=== PATIENT | male | born 1940 | race Caucasian/White ===

== ENCOUNTER 2018-08-25 09:06 | Day surgery (SDC) | payer MEDICARE, BC ==
--- NOTE | 2018-08-12 23:26 | HP ---
CC: GOLDY Guillen.* HISTORY AND PHYSICAL: DATE OF PLANNED ADMISSION AND SURGERY: 08/25/18. HISTORY OF PRESENT ILLNESS: Mr. Adorno is a 77-year-old white male who is admitted with past history of bladder tumor, suspected tumor of the right ureteral orifice and distal Rt ureter, for cystoscopy, right retrograde pyelography, right ureteroscopy, biopsy and right ureteral stent insertion. Regarding the patient's cardiac and medical histories, please refer to the detailed history and physical enclosed with pt's records, dated 08/11/18, by Dr. Jed Aguirre, his hot box checker. Mr. Adorno's history goes back to 4 years ago when he presented with hematuria, urinary incontinence and was diagnosed as having multiple bladder tumors. At that time, he underwent transurethral resection of the tumors. 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 Retrograde pyelographies showed no upper tract disease. The patient was treated with a 6 weeks' course of BCG, however, he had recurrent lesions that were again high grade, non- invasive and he was treated with another course of BCG. He did well and he had small recurrences that were fulgurated in the office. He has done well for the last 2 years without recurrences. He had a recent office cystoscopy which showed a papillary lesion arising from the right ureteral orifice suspicious for transitional cell carcinoma. Because of that finding, the patient is admitted for above procedure. Past history is relevant for chronic urinary incontinence. The cause of the incontinence has not been clearly found as the patient has not had any pelvic surgeries and does not have any neurologic diseases to explain it. The incontinence seems to be a combination of urge and stress incontinence. He has not had any recurrent episodes of gross hematuria or flank pain or urinary tract infections. He has been on Tamsulosin and finasteride for prostate enlargement and bladder outlet obstruction. PAST MEDICAL HISTORY: Relevant for coronary artery disease, for which he underwent coronary bypass surgery in [place] in August 2015. He is hypertensive and diabetic and hyperlipidemic. He has a chronic atrial fibrillation and coronary arteriosclerosis. MEDICATIONS: He is on the following medications: 1. Lisinopril 20 mg daily. 2. Ibuprofen 200 mg as needed. 3. Atorvastatin 20 mg daily. 4. Invokana 300 mg daily. 5. Levemir 100 units per cc injecting 15 units twice a day. 6. Trulicity IM injection weekly. 7. He is on Eliquis 5 mg twice a day. 8. Finasteride 5 mg daily. 9. Tamsulosin 0.4 mg daily. ALLERGIES: The patient reports being allergic to IV CONTRAST and to PRADAXA. SOCIAL HISTORY: The patient has never been a smoker and has not used any alcohol or illicit drugs. He lives alone. He is a . PHYSICAL EXAMINATION GENERAL: He is a pleasant moderately overweight white male who looks his age. VITAL SIGNS: Blood pressure 130/80, pulse 100. Weight 265 pounds. LUNGS: Clear. HEART: Irregular, no murmurs. ABDOMEN: Soft, no masses, no tenderness and no CVA tenderness. EXTERNAL GENITALIA: Normal. RECTAL EXAM: Moderately enlarged but nonsuspicious prostate. IMPRESSION: 1. History of transitional cell carcinoma of the urinary bladder, with papillary lesion arising from the right ureteral orifice noted on recent office cystoscopy. 2. Coronary artery disease. 3. Atrial fibrillation. 4. Hypertension. 5. Diabetes mellitus. PLAN: Cystoscopy, right retrograde pyelography, right ureteroscopy, biopsy of right ureteral lesion and insertion of right ureteral stent. The procedure will be done without having to stop his Eliquis. I discussed the operation in detail with the patient and all his questions were answered. [id number]/[facility] #: [id number] SARABJIT
[~2018-08-25 09:06] MED LIST: Buffered Lidocaine 1% SYRIN* 1 ML/SYRINGE INTRADERM ONE; Famotidine IV* 10 MG/ML 2 ML (20 mg) IV ONE; Lactated Ringers 1000 ML Bag* 1,000 ML IV SCH
[2018-08-25] MEDS ORDERED: cefTRIAXone(*) 2 GM ADDV.VIAL IVPB ONE (10:03)
[2018-08-25] MEDS ORDERED: Famotidine IV* 10 MG/ML 2 ML (20 mg) ONE (10:03)
[2018-08-25] MEDS ORDERED: Buffered Lidocaine 1% SYRIN* 1 ML/SYRINGE INTRADERM ONE (10:03)
[2018-08-25] MEDS ORDERED: Iohexol 180 (CONTRAST) 10 ML SDV IV ONE (11:35)
[2018-08-25] MEDS ORDERED: Propofol* 10 MG/ML 20 ML BTL ONE (12:02)
[2018-08-25] MEDS ORDERED: fentaNYL* 50 MCG/ML 2 ML VIAL (100 MCG VIAL) ONE (12:02)
[2018-08-25] MEDS ORDERED: Lidocaine 2% PF * 5 ML VIAL ONE (12:03)
[2018-08-25] MEDS ORDERED: Phenylephrine 40 MCG/ML SYRINGE ONE (12:12)
[2018-08-25] MEDS ORDERED: EPHEDrine (Pressors)* 50 MG/ML VIAL ONE (12:51)
[2018-08-25] MEDS ORDERED: Furosemide IV* 10 MG/ML 2 ML VIAL (20 MG) ONE (13:25)
[2018-08-25 15:52] VITALS: BP 153/99
--- NOTE | 2018-08-25 16:13 | OP ---
DATE OF OPERATION: 08/25/18 - [facility] DATE OF : 44 SURGEON: Richard Jacob MD ANESTHESIOLOGIST: Dr. Doc Nair. ANESTHESIA: General. PRE-OP DIAGNOSIS: Tumor distal right ureter. POST-OP DIAGNOSIS: Tumor distal right ureter, pending pathology. OPERATIVE PROCEDURE: 1. Cystoscopy. 2. Bilateral retrograde pyelographies. 3. Right ureteroscopy, washings, and biopsies of lesions distal right ureter. 4. Right ureteral stent insertion (6-[place]). 5. Bladder biopsy and fulguration (left trigone). INDICATION FOR PROCEDURE: Mr. Adorno is a 77-year-old white male who has past history of bladder tumors and who on his recent surveillance cystoscopy was noted to have a small papillary lesion arising from the right ureteral orifice. The patient could not have a CT urogram because of allergy to IV CONTRAST. He is brought in for the above procedures. PATHOLOGY: At cystoscopy, the penile and bulbar urethrae looked normal. The prostatic urethra measured about 2.5 cm in length and there was moderate obstruction by bilobar hyperplasia of the prostate. Examination of the bladder showed moderate degree of trabeculations. There was an elevated hyperemic lesion just lateral to the left ureteral orifice measuring about 5 mm in size. No other suspicious bladder lesions were seen. There was a small papillary lesion arising from the right ureteral orifice measuring 2 to 3 mm in size. Upon right retrograde pyelography, there was no evidence of any abnormal filling defects in the ureter or in the collecting system. There was a fusiform narrowing of the distal Rt ureteral lumen. Upon right ureteroscopy, there were several papillary lesions and hyperemia of the mucosa of the distal 3 cm of the ureter. The lesions had the appearance of a flat superficial well-differentiated transitional cell carcinoma. Ureteroscopy into the proximal ureter showed no lesions. Left retrograde pyelography showed no abnormal filling defects or dilatation of the left ureter or the collecting system. DESCRIPTION OF PROCEDURE: After successful general anesthesia, the patient was placed in the lithotomy position and was prepped and draped for a cystoscopy. Cystoscopy was performed. The bladder was inspected and the above findings were noted. A flexible tip guidewire was then introduced into the right orifice. A size 5- [place] open-ended catheter was fed on top of the guidewire and retrograde pyelography was performed, and the above findings noted. The guidewire was reinserted inside the right orifice. Biopsies were obtained from the right orifice including the small papillary lesion seen. A size 6.5 semi-rigid tapered ureteroscope was then introduced into the right orifice. The pathology in the distal ureter was noted. Using the biopsy forceps through the ureteroscope, several biopsies were obtained from the above lesions and were put in saline and sent for pathology. Washings were then obtained from the distal ureter and sent for cytology. Ureteroscopy was then continued into the proximal ureter and no other lesions seen. A size 6-[place] stent was then placed with the proximal end coiling in the renal pelvis and the distal end coiling inside the bladder. Attention was then directed to the left ureteral orifice with the plan to perform a diagnostic left retrograde pyelography to rule out any lesions in the left collecting system and ureter. It was a bit difficult to pass the guidewire into the left ureter due to the angle of the ureter and after several attempts, it was successful. Retrograde pyelography was performed and the above findings were noted. There was prompt drainage of contrast from the ureter following the open-ended catheter removal. The lesion in the left trigone lateral to the left orifice was then excised using the biopsy forceps. The lesion was fulgurated with the Bugbee electrode. A size 16-[place] Jasso catheter was placed. The patient tolerated the procedure well and left the operating room in good condition. The specimens were right ureteral biopsies and washings and biopsy of left trigone. [id number]/[facility] #: [id number] SARABJIT
== END 2018-08-25 15:50 | disposition home or self-care (01) ==
LOC: OR 09:06
PROVIDERS: ATTEND Urology
DX: N28.89 Other specified disorders of kidney and ureter (principal); Z85.51 Personal history of malignant neoplasm of bladder; I25.10 Atherosclerotic heart disease of native coronary artery without angina pectoris; I25.2 Old myocardial infarction; I10 Essential (primary) hypertension; I48.91 Unspecified atrial fibrillation; Z79.01 Long term (current) use of anticoagulants; E11.9 Type 2 diabetes mellitus without complications; Z95.1 Presence of aortocoronary bypass graft; E78.5 Hyperlipidemia, unspecified
CPT/HCPCS: 74420; 88112; 88305; 88342; C1876; J0696; J1940; J2704; J3010

== ENCOUNTER → 2018-09-15 05:44 | Day surgery (SDC) | payer MEDICARE, BC ==
--- NOTE | 2018-09-01 08:30 | HP ---
INTERVAL HISTORY AND PHYSICAL: DATE OF PLANNED ADMISSION AND SURGERY: 09/15/18 Please refer to my detailed history and physical for his recent admission dated 08/25/18. HISTORY OF PRESENT ILLNESS: Mr. Adorno is a 77-year-old white male who has suspected tumor of the distal right ureter who is admitted for right ureteroscopy, biopsy, and right ureteral stent exchange. Mr. Adorno was diagnosed about 4 years ago with high-grade noninvasive transitional cell carcinoma of the urinary bladder . He was treated with resection followed by intravesical BCG. He did well and had no evidence of recurrent disease. He was admitted on 08/25/18 because of a papillary lesion arising from the right ureteral orifice noted on surveillance office cystoscopy. A CT urogram could not be obtained because of allergy to IV contrast. He underwent a cystoscopy, left retrograde pyelography, which showed normal left ureter and collecting system. He had a biopsy of a lesion of the left trigone, which the pathology showed it to be benign. He had a right ureteroscopy, which showed suspicious lesions involving the distal 3 cm of the right ureter. There were small papillary lesions arising from the ureteral mucosa. The washings from the distal right ureter were suspicious for transitional cell carcinoma. Superficial biopsies from the ureteral wall, showed denuded urothelium and inflammatory changes and did not show malignancy. The patient had a right ureteral stent insertion. He did well postoperatively. Because there is still suspicion that the lesions seen in the distal right ureter do represent transitional cell carcinoma, the patient is brought back in for a repeat right ureteroscopy, biopsies, and right ureteral stent exchange. There have not been any changes in his medical condition or in his medications or in his physical exam. I discussed the above plans in detail with the patient and all his questions were answered. [id number]/[facility] #: [id number] SARABJIT
[~2018-09-15 05:44] MED LIST changes: -Famotidine IV* 10 MG/ML 2 ML (20 mg) IV ONE; +Iohexol 180 (CONTRAST) 10 ML SDV IV ONE; +Midazolam* 1 MG/ML 2 ML VIAL (2 MG) ONE; +Naloxone* 0.4 MG/ML 1 ML VIAL IV PRN; +Ondansetron INJ* 2 MG/ML VIAL IV PRN; +Propofol* 10 MG/ML 20 ML BTL ONE; +cefTRIAXone(*) 2 GM ADDV.VIAL IVPB ONE; +fentaNYL* 50 MCG/ML 2 ML VIAL (100 MCG VIAL) IV PRN; +fentaNYL* 50 MCG/ML 2 ML VIAL (100 MCG VIAL) ONE; +oxyCODONE/Acetamin 5/325 MG* TAB PO PRN
--- NOTE | 2018-09-15 09:50 | OP ---
DATE OF OPERATION: 09/15/18 - [facility] DATE OF : 44 SURGEON: Richard Jacob MD. ANESTHESIOLOGIST: Kade Rodriguez MD. ANESTHESIA: General. PRE-OP DIAGNOSIS: Right ureteral lesions. POST-OP DIAGNOSIS: Pending pathology. OPERATIVE PROCEDURE: 1. Cystoscopy. 2. Right retrograde pyelography. 3. Washings of proximal and distal right ureter. 4. Biopsies distal right ureter. 5. Right ureteral stent exchange (7-Australian). INDICATION FOR PROCEDURE: Mr. Adorno is a 77-year-old white male who was diagnosed 4 years ago with multiple lesions of high-grade non-invasive transitional cell carcinoma of the urinary bladder. He was treated by resections and followed with intravesical BCG and ultimately did very well without any recurrent disease. His upper tracts were normal. On a recent cystoscopy, he was noted to have a small papillary lesion arising from the right ureteral orifice. Three weeks ago, he underwent a cystoscopy, right ureteroscopy, biopsies and washings from the right ureter with insertion of ureteral stent. The cytologies were suspicious for transitional cell carcinoma; however, the biopsies showed inflammatory changes. The patient now is being brought in for repeat ureteroscopy and evaluation of the right ureter. PATHOLOGY: At cystoscopy, the penile and bulbar urethrae looked normal. The prostate was minimally obstructing. Examination of the bladder showed the distal limb of the stent coming from the right orifice. There was the expected edema at the right trigone from the stent. There was some hyperemia in the bladder wall but not suspicious for malignancy. Granulation tissue was noted in the left trigone at the site of the biopsy 3 weeks ago. Upon right ureteroscopy, there was the expected edema from the ureteral stent. There were no lesions seen in the ureter that had the typical appearance of transitional cell carcinoma. Retrograde pyelography showed no abnormal filling defects in the ureter or in the collecting system. The area of partial narrowing in the distal right ureter noted at the original right retrograde did not show any specific lesions either. Washings were obtained from the proximal and from the distal ureter. Small biopsies were obtained from the distal ureter. DESCRIPTION OF PROCEDURE: After successful general anesthesia, the patient was placed in the lithotomy position and was prepped and draped for a cystoscopy. Cystoscopy was performed. The bladder was inspected and the above findings were noted. The right ureteral stent was removed over a guidewire. Right ureteroscopy was then performed and the findings in the ureteral wall were noted. The ureteroscope was introduced all the way into the proximal ureter. Washings were obtained from the proximal and mid ureter and sent for cytology. The ureteroscope was then positioned in the distal ureter. Additional washings were obtained and sent for cytology. Using the biopsy forceps, 2 small biopsies were obtained from some of the edematous mucosal tissue. Again, it did not have the appearance of papillary transitional cell carcinoma. A 7-[place] stent was then placed with the proximal end coiling in the renal pelvis and the distal end coiling inside the ureter. A 16-[place] Jasso catheter was placed. The patient tolerated the procedure well and left the operating room in good condition. The plan is to keep the stent in place for 7 to 10 days. It will be removed in the office as an outpatient. Depending upon the result of the cytologies and biopsy, we will decide on the additional management and treatment. [id number]/[facility] #: [id number] MTDD
[2018-09-15 11:18] VITALS: BP 147/75
== END | disposition home or self-care (01) ==
LOC: OR 05:44
PROVIDERS: ATTEND Urology
DX: N28.89 Other specified disorders of kidney and ureter (principal); Z85.51 Personal history of malignant neoplasm of bladder; I25.2 Old myocardial infarction; I25.10 Atherosclerotic heart disease of native coronary artery without angina pectoris; I48.91 Unspecified atrial fibrillation; Z79.01 Long term (current) use of anticoagulants; E11.9 Type 2 diabetes mellitus without complications
CPT/HCPCS: 51600; 74420; 74430; 88112; 88305; 88342; C1876; J0696; J2250; J2704; J3010

== ENCOUNTER 2020-08-22 22:54 | Inpatient (IN) ==
[2020-08-22] MEDS ORDERED: NS 0.9% 1000 ml BAG 1,000 ML IV ONE (22:58)
[2020-08-22 23:35] LABS: ABS Basophils 0.1 10^3/ul (0-0.2); ABS Eosinophils 0.1 10^3/ul (0-0.6); ABS Lymphocytes 0.8 10^3/ul (1.0-4.8); ABS Monocytes 0.8 10^3/ul (0-0.8); ABS Neutrophils 6.9 10^3/ul (1.5-7.7); Eosinophil % 0.9 %; Hematocrit 42 % (42-52); Lymphocyte % 8.8 %; Mean Corpuscular HGB Conc 33 g/dL (31-36); Mean Corpuscular Hemoglobin 29 pg (27-31); Mean Corpuscular Volume 87 fL (80-94); Mean Platelet Volume 7.4 fL (7.4-10.4); Nucleated Red Blood Cells % 0.1; Platelet Count 402 10^3/uL (150-450); Red Blood Count 4.86 10^6 /uL (4.18-5.48); Red Cell Distribution Width 15 % (10-15); White Blood Count 8.6 10^3/uL (3.5-10.8)
[2020-08-22 23:50] LABS: Activated Partial Thrombo Time 35.2 seconds (26.0-38.0); INR 1.03 (0.82-1.09)
[2020-08-22 23:53] LABS: Albumin 3.7 g/dL (3.2-5.2); Albumin/Globulin Ratio 1.4 (1-3); Calcium 10.2 mg/dL (8.6-10.3); EGFR Non-African American 81.8 (>60); Globulin 2.6 g/dL (2-4); HDL Cholesterol 42.1 mg/dL; Total Bilirubin 0.6 mg/dL (0.2-1.0); Total Protein 6.3 g/dL (6.4-8.9)
[2020-08-22 23:55] LABS: Troponin I 0.01 ng/mL (<0.03)
[2020-08-23 00:26] LABS: Potassium 4.5 mmol/L (3.5-5.0)
[2020-08-23 00:43] LABS: Urine Appearance Clear; Urine Bacteria Absent (Absent); Urine Bilirubin Negative (Negative); Urine Blood Negative (Negative); Urine Color Yellow; Urine Glucose 3+(>=500 mg/dL) (Negative); Urine Ketones Negative (Negative); Urine Nitrite Negative (Negative); Urine Protein 1+(30 mg/dL) (Negative); Urine Red Blood Cell Trace(0-2/hpf) (Absent); Urine Specific Gravity 1.024 (1.002-1.030); Urine Urobilinogen Negative (Negative); Urine White Blood Cell Trace(0-5/hpf) (Absent)
[2020-08-23] MEDS ORDERED: Dextrose 50% Syringe 50 ml 25 GM/50 ML SYRINGE IV PUSH PRN (01:18)
[2020-08-23] MEDS ORDERED: cefTRIAXone 1 gm/50 mL NS BAG 1 GM/50 ML BAG IV ONE (01:28)
[2020-08-23] MEDS ORDERED: Azithromycin 500 mg/250 ml NS 500 MG/250 ML BAG IVPB ONE (01:28)
[2020-08-23] MEDS ORDERED: Furosemide 40 mg/4 ml IV VIAL IV SLOW PU ONE (01:56)
[2020-08-23 02:23] LABS: C Reactive Protein 3.4 mg/L (<8.01)
[2020-08-23 04:48] LABS: HDL Cholesterol 44.2 mg/dL
[2020-08-23] MEDS ORDERED: Gadobenate (CONTRAST) 529 MG/ML 10 ML SDV IV ONE (17:26)
[2020-08-24] MEDS ORDERED: Magnesium Sulfate IV 1GM/100ML 1 GM/100 ML BAG IV ONE (06:06)
[2020-08-24 06:31] LABS: ABS Basophils 0.1 10^3/ul (0-0.2); ABS Eosinophils 0.2 10^3/ul (0-0.6); ABS Lymphocytes 1.3 10^3/ul (1.0-4.8); ABS Monocytes 0.6 10^3/ul (0-0.8); ABS Neutrophils 4.4 10^3/ul (1.5-7.7); Eosinophil % 2.9 %; Hematocrit 43 % (42-52); Hemoglobin 14.7 g/dL (14.0-18.0); Lymphocyte % 20.1 %; Mean Corpuscular HGB Conc 34 g/dL (31-36); Mean Corpuscular Hemoglobin 29 pg (27-31); Mean Corpuscular Volume 87 fL (80-94); Mean Platelet Volume 7.9 fL (7.4-10.4); Nucleated Red Blood Cells % 0.1; Platelet Count 376 10^3/uL (150-450); Red Blood Count 4.99 10^6 /uL (4.18-5.48); Red Cell Distribution Width 15 % (10-15); White Blood Count 6.6 10^3/uL (3.5-10.8)
[2020-08-24 06:38] LABS: Blood Urea Nitrogen 21 mg/dL (6-24); CO2 Carbon Dioxide 27 mmol/L (22-32); Chloride 105 mmol/L (101-111); EGFR African American 104.3 (>60); EGFR Non-African American 86.2 (>60); Glucose 171 mg/dL (70-100); Sodium 138 mmol/L (135-145)
[2020-08-24 06:39] LABS: Anion Gap 6 mmol/L (2-11)
[2020-08-25 05:37] LABS: ABS Basophils 0.1 10^3/ul (0-0.2); ABS Eosinophils 0.2 10^3/ul (0-0.6); ABS Lymphocytes 1.3 10^3/ul (1.0-4.8); ABS Monocytes 0.8 10^3/ul (0-0.8); ABS Neutrophils 4.4 10^3/ul (1.5-7.7); Eosinophil % 2.9 %; Hematocrit 41 % (42-52); Hemoglobin 13.9 g/dL (14.0-18.0); Lymphocyte % 19.4 %; Mean Corpuscular HGB Conc 34 g/dL (31-36); Mean Corpuscular Hemoglobin 29 pg (27-31); Mean Corpuscular Volume 86 fL (80-94); Mean Platelet Volume 7.2 fL (7.4-10.4); Nucleated Red Blood Cells % 0.1; Platelet Count 345 10^3/uL (150-450); Red Blood Count 4.78 10^6 /uL (4.18-5.48); Red Cell Distribution Width 14 % (10-15); White Blood Count 6.8 10^3/uL (3.5-10.8)
[2020-08-25 07:01] LABS: Calcium 9.8 mg/dL (8.6-10.3)
[2020-08-25 07:07] LABS: EGFR African American 101.6 (>60)
[2020-08-26] MEDS ORDERED: hydrALAZINE 20 mg/ml 1 ML Vial IV IV SLOW PU ONE (03:34)
[2020-08-26 08:25] LABS: Calcium 9.8 mg/dL (8.6-10.3); EGFR African American 108.7 (>60); EGFR Non-African American 89.8 (>60); Potassium 4.1 mmol/L (3.5-5.0)
[2020-08-26] MEDS ORDERED: Canagliflozin 300 mg TAB (NF) PO SCH (09:00)
[2020-08-26 13:35] VITALS: BP 134/74
== END 2020-08-26 14:49 ==
LOC: ED 22:54 → MEDTELE 08-23 01:06
PROVIDERS: ADMIT Internal Medicine; ATTEND Hospitalist

== ENCOUNTER 2020-08-26 12:25 | Inpatient (IN) ==
[2020-08-26] MEDS ORDERED: Al Hydrox/Mg Hydrox/Simet LIQ 30 ML UDC PO PRN (12:56)
[2020-08-26] MEDS ORDERED: Dextrose 50% Syringe 50 ml 25 GM/50 ML SYRINGE IV PUSH PRN (13:12)
[2020-08-27 05:04] LABS: ABS Basophils 0.1 10^3/ul (0-0.2); ABS Eosinophils 0.1 10^3/ul (0-0.6); ABS Lymphocytes 1.5 10^3/ul (1.0-4.8); ABS Monocytes 0.6 10^3/ul (0-0.8); Eosinophil % 2.2 %; Hematocrit 41 % (42-52); Hemoglobin 13.5 g/dL (14.0-18.0); Lymphocyte % 23.7 %; Mean Corpuscular HGB Conc 33 g/dL (31-36); Mean Corpuscular Hemoglobin 29 pg (27-31); Mean Corpuscular Volume 87 fL (80-94); Mean Platelet Volume 7.7 fL (7.4-10.4); Platelet Count 309 10^3/uL (150-450); Red Blood Count 4.68 10^6 /uL (4.18-5.48); Red Cell Distribution Width 15 % (10-15); White Blood Count 6.4 10^3/uL (3.5-10.8)
[2020-08-27 05:20] LABS: Albumin 3.3 g/dL (3.2-5.2); Albumin/Globulin Ratio 1.4 (1-3); Calcium 9.5 mg/dL (8.6-10.3); EGFR Non-African American 81.8 (>60); Globulin 2.3 g/dL (2-4); Total Bilirubin 0.6 mg/dL (0.2-1.0); Total Protein 5.6 g/dL (6.4-8.9)
[2020-08-27] MEDS: Canagliflozin 300 mg TAB (NF) PO SCH (09:27)
[2020-08-27] MEDS: Senna TAB 8.6 mg TAB PO PRN (19:39)
[2020-08-28] MEDS: Canagliflozin 300 mg TAB (NF) PO SCH (08:20)
[2020-08-29] MEDS: Senna TAB 8.6 mg TAB PO PRN (20:31)
[2020-08-30] MEDS: Senna TAB 8.6 mg TAB PO PRN (20:12)
[2020-09-03 05:55] LABS: ABS Basophils 0.1 10^3/ul (0-0.2); ABS Eosinophils 0.1 10^3/ul (0-0.6); ABS Lymphocytes 1.1 10^3/ul (1.0-4.8); ABS Monocytes 0.6 10^3/ul (0-0.8); ABS Neutrophils 4.1 10^3/ul (1.5-7.7); Hematocrit 41 % (42-52); Hemoglobin 13.6 g/dL (14.0-18.0); Lymphocyte % 18.2 %; Mean Corpuscular HGB Conc 33 g/dL (31-36); Mean Corpuscular Hemoglobin 29 pg (27-31); Mean Corpuscular Volume 87 fL (80-94); Mean Platelet Volume 8.1 fL (7.4-10.4); Platelet Count 240 10^3/uL (150-450); Red Blood Count 4.71 10^6 /uL (4.18-5.48); Red Cell Distribution Width 15 % (10-15); White Blood Count 6.1 10^3/uL (3.5-10.8)
[2020-09-03 06:14] LABS: Albumin 3.5 g/dL (3.2-5.2); Albumin/Globulin Ratio 1.5 (1-3); Calcium 9.7 mg/dL (8.6-10.3); EGFR African American 95.3 (>60); EGFR Non-African American 78.8 (>60); Globulin 2.4 g/dL (2-4); Total Bilirubin 0.8 mg/dL (0.2-1.0); Total Protein 5.9 g/dL (6.4-8.9)
[2020-09-03] MEDS: Senna TAB 8.6 mg TAB PO PRN (20:35)
[2020-09-04] MEDS: Senna TAB 8.6 mg TAB PO PRN (21:22)
[2020-09-06] MEDS: Insulin GLARGINE 100 un/ml 10 ml VIAL SUBCUT SCH (09:26)
[2020-09-07] MEDS: Insulin GLARGINE 100 un/ml 10 ml VIAL SUBCUT SCH (08:41)
[2020-09-08] MEDS: Insulin GLARGINE 100 un/ml 10 ml VIAL SUBCUT SCH (08:51)
[2020-09-09] MEDS: Insulin GLARGINE 100 un/ml 10 ml VIAL SUBCUT SCH (08:10)
[2020-09-10 06:54] LABS: ABS Basophils 0.1 10^3/ul (0-0.2); ABS Eosinophils 0.1 10^3/ul (0-0.6); ABS Lymphocytes 1.1 10^3/ul (1.0-4.8); ABS Monocytes 0.5 10^3/ul (0-0.8); ABS Neutrophils 4.7 10^3/ul (1.5-7.7); Eosinophil % 1.5 %; Hematocrit 43 % (42-52); Hemoglobin 14.2 g/dL (14.0-18.0); Lymphocyte % 17.5 %; Mean Corpuscular HGB Conc 33 g/dL (31-36); Mean Corpuscular Hemoglobin 29 pg (27-31); Mean Corpuscular Volume 86 fL (80-94); Mean Platelet Volume 7.9 fL (7.4-10.4); Platelet Count 263 10^3/uL (150-450); Red Blood Count 4.92 10^6 /uL (4.18-5.48); Red Cell Distribution Width 15 % (10-15); White Blood Count 6.4 10^3/uL (3.5-10.8)
[2020-09-10 07:10] LABS: Albumin 3.8 g/dL (3.2-5.2); Albumin/Globulin Ratio 1.5 (1-3); Calcium 10.1 mg/dL (8.6-10.3); EGFR Non-African American 81.8 (>60); Globulin 2.6 g/dL (2-4); Potassium 4.3 mmol/L (3.5-5.0); Total Bilirubin 0.6 mg/dL (0.2-1.0); Total Protein 6.4 g/dL (6.4-8.9)
[2020-09-10] MEDS: Insulin GLARGINE 100 un/ml 10 ml VIAL SUBCUT SCH (07:40)
[2020-09-11] MEDS: Insulin GLARGINE 100 un/ml 10 ml VIAL SUBCUT SCH (09:15)
[2020-09-11] MEDS: Senna TAB 8.6 mg TAB PO PRN (20:47)
[2020-09-12] MEDS: Insulin GLARGINE 100 un/ml 10 ml VIAL SUBCUT SCH (09:12)
[2020-09-13] MEDS: Insulin GLARGINE 100 un/ml 10 ml VIAL SUBCUT SCH (09:17)
[2020-09-14] MEDS: Insulin GLARGINE 100 un/ml 10 ml VIAL SUBCUT SCH (09:28)
[2020-09-15] MEDS: Insulin GLARGINE 100 un/ml 10 ml VIAL SUBCUT SCH (10:57)
[2020-09-16] MEDS: Insulin GLARGINE 100 un/ml 10 ml VIAL SUBCUT SCH (08:46)
[2020-09-17 06:22] LABS: ABS Basophils 0.1 10^3/ul (0-0.2); ABS Eosinophils 0.2 10^3/ul (0-0.6); ABS Lymphocytes 1.3 10^3/ul (1.0-4.8); ABS Monocytes 0.6 10^3/ul (0-0.8); ABS Neutrophils 4.1 10^3/ul (1.5-7.7); Eosinophil % 2.4 %; Hematocrit 38 % (42-52); Hemoglobin 12.6 g/dL (14.0-18.0); Lymphocyte % 21.2 %; Mean Corpuscular HGB Conc 33 g/dL (31-36); Mean Corpuscular Hemoglobin 29 pg (27-31); Mean Corpuscular Volume 86 fL (80-94); Mean Platelet Volume 7.7 fL (7.4-10.4); Platelet Count 261 10^3/uL (150-450); Red Blood Count 4.39 10^6 /uL (4.18-5.48); Red Cell Distribution Width 15 % (10-15); White Blood Count 6.2 10^3/uL (3.5-10.8)
[2020-09-17 06:34] LABS: Albumin 3.2 g/dL (3.2-5.2); Albumin/Globulin Ratio 1.3 (1-3); Calcium 9.7 mg/dL (8.6-10.3); EGFR African American 88.7 (>60); EGFR Non-African American 73.3 (>60); Globulin 2.4 g/dL (2-4); Potassium 4.4 mmol/L (3.5-5.0); Total Bilirubin 0.4 mg/dL (0.2-1.0); Total Protein 5.6 g/dL (6.4-8.9)
[2020-09-17] MEDS: Insulin GLARGINE 100 un/ml 10 ml VIAL SUBCUT SCH (08:16)
[2020-09-17] MEDS: Senna TAB 8.6 mg TAB PO PRN (20:00)
[2020-09-18 06:37] LABS: ABS Basophils 0.1 10^3/ul (0-0.2); ABS Eosinophils 0.1 10^3/ul (0-0.6); ABS Lymphocytes 1.3 10^3/ul (1.0-4.8); ABS Monocytes 0.6 10^3/ul (0-0.8); ABS Neutrophils 4.1 10^3/ul (1.5-7.7); Eosinophil % 1.8 %; Hematocrit 41 % (42-52); Hemoglobin 13.7 g/dL (14.0-18.0); Lymphocyte % 20.9 %; Mean Corpuscular HGB Conc 33 g/dL (31-36); Mean Corpuscular Hemoglobin 29 pg (27-31); Mean Corpuscular Volume 87 fL (80-94); Mean Platelet Volume 7.3 fL (7.4-10.4); Nucleated Red Blood Cells % 0.1; Platelet Count 301 10^3/uL (150-450); Red Blood Count 4.77 10^6 /uL (4.18-5.48); Red Cell Distribution Width 15 % (10-15); White Blood Count 6.2 10^3/uL (3.5-10.8)
[2020-09-18] MEDS: Insulin GLARGINE 100 un/ml 10 ml VIAL SUBCUT SCH (08:04)
[2020-09-19] MEDS: Insulin GLARGINE 100 un/ml 10 ml VIAL SUBCUT SCH (07:45)
[2020-09-20 05:35] VITALS: BP 148/67
[2020-09-20] MEDS: Insulin GLARGINE 100 un/ml 10 ml VIAL SUBCUT SCH (08:20)
== END 2020-09-20 13:25 | disposition home health service (06) | DRG 57 ==
LOC: PMRU 16:36
PROVIDERS: ADMIT Physical Medicine & Rehabilitation; ATTEND Physical Medicine & Rehabilitation

== ENCOUNTER 2023-11-29 20:46 | Inpatient (IN) ==
[2023-11-29 21:46] LABS: Hematocrit 23.9 % (38-53); Hemoglobin 7.7 g/dL (13.2-16.3); INR 1.54 (0.85-1.14); Mean Corpuscular Hgb Conc 32.3 g/dL (31-36); Mean Corpuscular Volume 71.2 fL (80-97); Mean Platelet Volume 6.6 fL (7.5-11.2); Platelet Count 472 10^3/uL (150-450); Red Blood Count 3.35 10^6/uL (4.06-5.63); Red Cell Distribution Width 17.4 % (12-17)
[2023-11-29] MEDS: Piperacillin/Tazobac 3.375 BAG 3.375 GM/100 ML BAG IV ONE (21:55)
[2023-11-29] MEDS: Acetaminophen IV 1 GM/100ML 1,000 MG/100 ML BAG IV ONE (22:16)
[2023-11-29] MEDS: LACTATED RINGERS SEPSIS IV ONE (22:17)
[2023-11-29 22:18] LABS: Albumin 2.7 g/dL (3.2-5.2); Albumin/Globulin Ratio 0.9 (1-3); C Reactive Protein 183.13 mg/L (<8.01); Creatinine, Serum 1.17 mg/dL (0.67-1.17); Potassium 4.8 mmol/L (3.5-5.0); Total Bilirubin 0.3 mg/dL (0.2-1.0); Total Protein 5.7 g/dL (6.4-8.9); eGFR CKD-EPI 62.6 (>60)
[2023-11-29 22:20] LABS: ABS Lymphocytes 0.7 10^3/uL (1.0-4.8); ABS Neutrophils 8.3 10^3/uL (1.5-7.6); ABS Nucleated RBC 0.01 10^3/ul; Anisocytosis 1+; Lymphocyte % 6.7 %; Microcytosis 2+; Nucleated Red Blood Cells % 0.1 %/100WBC (0.0-0.8)
[2023-11-29 22:23] LABS: Urine Appearance Turbid; Urine Bilirubin Negative (Negative); Urine Blood 2+ (Negative); Urine Color Light-Yellow; Urine Glucose Negative (Negative); Urine Ketones Negative (Negative); Urine Nitrite Negative (Negative); Urine Protein 2+ (>=100 mg/dL) (Negative); Urine Specific Gravity 1.017 (1.002-1.030); Urine Urobilinogen Negative (Negative); Urine pH 5.5 (5.0-8.0)
[2023-11-29 22:25] LABS: Urine Bacteria Absent /HPF (Absent); Urine Red Blood Cell 3+(>10/hpf) /HPF (0-Trace); Urine White Blood Cell Trace(0-5/hpf) /HPF (0-Trace)
[2023-11-29 22:40] LABS: Activated Partial Thrombo Time 34.8 seconds (26.0-38.0)
[2023-11-29 22:43] LABS: C Reactive Protein 181.53 mg/L (<8.01)
[2023-11-29 23:16] LABS: High Sensitivity Troponin 1 Hr 47 pg/mL (<20)
[2023-11-30] MEDS: Lactated Ringers 1000 ml BAG IV.FLUID IV ONE
[2023-11-30] MEDS: Clindamycin 600 MG/D5W BAG 600 MG/50 ML BAG IV ONE (01:40)
[2023-11-30] MEDS: metroNIDAZOLE IV 500 MG/100ML 500 MG/100 ML BAG IVPB SCH ×2 (01:57→12:21)
[2023-11-30] MEDS ORDERED: Vancomycin per Pharmacy 1 EA NOTE FOLLOW UP SCH (02:00)
[2023-11-30] MEDS: Vancomycin 1,750 MG in NS 0.9% 250 ml 500 ML IVPB ONE ×2 (02:58→06:55)
[2023-11-30] MEDS: Cefepime 2 GM in Dextrose 2 GM/50 ML BAG IV SCH ×2 (03:05→17:33)
[2023-11-30] MEDS: Iohexol 350 (CONTRAST) 500 ML MDV IV ONE (03:54)
[2023-11-30] MEDS: Ferric Gluconate IV 250 MG in NS 0.9% 250 ml 200 ML IVPB SCH (12:53)
[2023-11-30] MEDS ORDERED: LORazepam 2 mg VIAL 1 ml IV PUSH PRN (13:55)
[2023-11-30] MEDS ORDERED: Lorazepam PYXIS KEY PRN (13:55)
[2023-11-30 14:49] LABS: ABS Basophils 0.1 10^3/uL (0.0-0.1); ABS Lymphocytes 0.6 10^3/uL (1.0-4.8); ABS Neutrophils 9.1 10^3/uL (1.5-7.6); ABS Nucleated RBC 0.01 10^3/ul; Eosinophil % 0.1 %; Hematocrit 23.7 % (38-53); Hemoglobin 7.8 g/dL (13.2-16.3); Lymphocyte % 5.7 %; Mean Corpuscular Hemoglobin 23.8 pg (27-33); Mean Corpuscular Hgb Conc 33.1 g/dL (31-36); Mean Corpuscular Volume 71.8 fL (80-97); Mean Platelet Volume 6.7 fL (7.5-11.2); Platelet Count 411 10^3/uL (150-450); Red Cell Distribution Width 17.8 % (12-17); White Blood Count 10.8 10^3/uL (3.6-10.2)
[2023-11-30] MEDS: Furosemide 20 mg/2 ml IV VIAL IV ONE (15:07)
[2023-11-30] MEDS ORDERED: Sulfur Hexaflouride MICROSPHR 25 MG VIAL IV PRN (15:33)
[2023-11-30 16:06] LABS: Ferritin 191.9 ng/mL (24-336)
[2023-11-30] MEDS: Vancomycin 1000 MG in NS 0.9% 250 ML IVPB SCH (18:12)
[2023-11-30] MEDS ORDERED: Vancomycin 1000 MG in NS 0.9% 250 ML IVPB SCH (18:30)
[2023-11-30] MEDS ORDERED: Dextrose 50% Syringe 50 ml 25 GM/50 ML SYRINGE IV PUSH PRN (20:04)
[2023-11-30] MEDS: Enoxaparin 100 MG/ML SYR SUBCUT ONE (22:42)
[2023-12-01 06:36] LABS: Calcium 8.9 mg/dL (8.6-10.3); Creatinine, Serum 1.06 mg/dL (0.67-1.17); Potassium 4.1 mmol/L (3.5-5.0); eGFR CKD-EPI 70.5 (>60)
[2023-12-01 07:15] LABS: Hemoglobin 9.1 g/dL (13.2-16.3); Mean Corpuscular Hemoglobin 24.7 pg (27-33); Mean Corpuscular Hgb Conc 33.6 g/dL (31-36); Mean Corpuscular Volume 73.6 fL (80-97); Mean Platelet Volume 6.6 fL (7.5-11.2); Platelet Count 422 10^3/uL (150-450); Red Blood Count 3.67 10^6/uL (4.06-5.63)
[2023-12-01 07:16] LABS: ABS Basophils 0.1 10^3/uL (0.0-0.1); ABS Lymphocytes 0.8 10^3/uL (1.0-4.8); ABS Monocytes 0.9 10^3/uL (0.0-1.1); ABS Neutrophils 8.1 10^3/uL (1.5-7.6); Eosinophil % 0.3 %; Lymphocyte % 8.5 %
[2023-12-01 10:01] LABS: C Reactive Protein 185.23 mg/L (<8.01)
[2023-12-01] MEDS: Furosemide 40 mg/4 ml IV VIAL IV SLOW PU ONE (12:03)
[2023-12-01] MEDS ORDERED: Lorazepam PYXIS KEY PRN (18:50)
[2023-12-01] MEDS: LORazepam 2 mg VIAL 1 ml IV PUSH PRN (19:01)
[2023-12-02 08:08] LABS: Hematocrit 29.3 % (38-53); Hemoglobin 9.7 g/dL (13.2-16.3); Mean Corpuscular Hgb Conc 33.1 g/dL (31-36); Mean Corpuscular Volume 72.6 fL (80-97); Mean Platelet Volume 6.5 fL (7.5-11.2); Platelet Count 487 10^3/uL (150-450); Red Blood Count 4.04 10^6/uL (4.06-5.63); Red Cell Distribution Width 18.2 % (12-17)
[2023-12-02 08:41] LABS: Creatinine, Serum 0.99 mg/dL (0.67-1.17); Potassium 3.8 mmol/L (3.5-5.0); Vancomycin Trough 16.3 mcg/mL; eGFR CKD-EPI 76.5 (>60)
[2023-12-02 09:15] LABS: ABS Eosinophils 0.1 10^3/uL (0.0-0.5); ABS Lymphocytes 0.8 10^3/uL (1.0-4.8); ABS Monocytes 0.8 10^3/uL (0.0-1.1); ABS Neutrophils 9.3 10^3/uL (1.5-7.6); Eosinophil % 0.5 %; Lymphocyte % 7.7 %
[2023-12-02] MEDS: Vancomycin Trough Check NOTE FOLLOW UP ONE (11:58)
[2023-12-02] MEDS: Potassium Chlor 20 meq TAB.ER PO ONE (18:50)
[2023-12-02 19:16] LABS: Magnesium 1.6 mg/dL (1.9-2.7); Phosphorus 2.2 mg/dL (2.5-5.0)
[2023-12-02] MEDS: Magnesium Sulfate 2 gm BAG 2 GM/50 ML BAG IVPB ONE (21:20)
[2023-12-02] MEDS: Insulin GLARGINE 100 un/ml 10 ml VIAL SUBCUT SCH (21:22)
[2023-12-03 05:18] LABS: Hematocrit 29.7 % (38-53); Hemoglobin 9.9 g/dL (13.2-16.3); Mean Corpuscular Hgb Conc 33.2 g/dL (31-36); Mean Corpuscular Volume 72.4 fL (80-97); Mean Platelet Volume 6.5 fL (7.5-11.2); Platelet Count 488 10^3/uL (150-450); Red Blood Count 4.11 10^6/uL (4.06-5.63); Red Cell Distribution Width 18.6 % (12-17); White Blood Count 10.5 10^3/uL (3.6-10.2)
[2023-12-03 05:28] LABS: Calcium 9.2 mg/dL (8.6-10.3); Creatinine, Serum 0.92 mg/dL (0.67-1.17); Potassium 3.9 mmol/L (3.5-5.0); eGFR CKD-EPI 83.6 (>60)
[2023-12-03 06:30] LABS: ABS Eosinophils 0.1 10^3/uL (0.0-0.5); ABS Lymphocytes 1.2 10^3/uL (1.0-4.8); ABS Monocytes 0.8 10^3/uL (0.0-1.1); ABS Neutrophils 8.4 10^3/uL (1.5-7.6); ABS Nucleated RBC 0.01 10^3/ul; Anisocytosis 1+; Eosinophil % 0.5 %; Lymphocyte % 11.6 %; Microcytosis 2+; Nucleated Red Blood Cells % 0.1 %/100WBC (0.0-0.8)
[2023-12-03] MEDS: Potassium Chlor 20 meq TAB.ER PO ONE (11:40)
[2023-12-03 11:55] LABS: Hematocrit 29.6 % (38-53); Hemoglobin 9.7 g/dL (13.2-16.3); Mean Corpuscular Hemoglobin 23.8 pg (27-33); Mean Corpuscular Hgb Conc 32.9 g/dL (31-36); Mean Corpuscular Volume 72.6 fL (80-97); Mean Platelet Volume 6.1 fL (7.5-11.2); Platelet Count 500 10^3/uL (150-450); Red Blood Count 4.08 10^6/uL (4.06-5.63); Red Cell Distribution Width 18.9 % (12-17); White Blood Count 10.1 10^3/uL (3.6-10.2)
[2023-12-03 12:22] LABS: Anion Gap 10 mmol/L (2-16); Blood Urea Nitrogen 23 mg/dL (6-24); CO2 Carbon Dioxide 27 mmol/L (22-32); Calcium 9.1 mg/dL (8.6-10.3); Chloride 107 mmol/L (101-111); Creatinine, Serum 0.85 mg/dL (0.67-1.17); Glucose 123 mg/dL (70-100); Potassium 3.9 mmol/L (3.5-5.0); Sodium 144 mmol/L (135-145); eGFR CKD-EPI 87.3 (>60)
[2023-12-03 12:23] LABS: ALT < 3 U/L (7-52); AST 8 U/L (13-39); Albumin 2.5 g/dL (3.2-5.2); Albumin/Globulin Ratio 0.9 (1-3); Alkaline Phosphatase 99 U/L (35-149); Globulin 2.9 g/dL (2-4); Iron 21 ug/dL (50-212); Magnesium 1.9 mg/dL (1.9-2.7); Total Bilirubin 0.4 mg/dL (0.2-1.0); Total Protein 5.4 g/dL (6.4-8.9); Transferrin 127 mg/dL (203-362)
[2023-12-03 12:26] LABS: ABS Basophils 0.1 10^3/uL (0.0-0.1); ABS Eosinophils 0.1 10^3/uL (0.0-0.5); ABS Monocytes 0.7 10^3/uL (0.0-1.1); ABS Neutrophils 8.3 10^3/uL (1.5-7.6); ABS Nucleated RBC 0.01 10^3/ul; Eosinophil % 0.5 %; Lymphocyte % 10.2 %; Nucleated Red Blood Cells % 0.1 %/100WBC (0.0-0.8)
[2023-12-03] MEDS: hydrALAZINE 20 mg/ml 1 ML Vial IV IV SLOW PU ONE (18:47)
[2023-12-03] MEDS: Potassium & Sodium Phos 250 mg = 1 PACKET PO SCH (19:39)
[2023-12-04 06:23] LABS: Calcium 9.4 mg/dL (8.6-10.3); Creatinine, Serum 0.92 mg/dL (0.67-1.17); Magnesium 1.8 mg/dL (1.9-2.7); Vancomycin Trough 22.3 mcg/mL; eGFR CKD-EPI 83.6 (>60)
[2023-12-04] MEDS: Vancomycin Trough Check NOTE FOLLOW UP ONE (06:41)
[2023-12-04 06:46] LABS: Hematocrit 30.5 % (38-53); Hemoglobin 9.6 g/dL (13.2-16.3); Mean Corpuscular Hemoglobin 22.8 pg (27-33); Mean Corpuscular Hgb Conc 31.5 g/dL (31-36); Mean Corpuscular Volume 72.3 fL (80-97); Mean Platelet Volume 6.2 fL (7.5-11.2); Platelet Count 522 10^3/uL (150-450); Red Blood Count 4.22 10^6/uL (4.06-5.63); Red Cell Distribution Width 18.8 % (12-17); White Blood Count 11.6 10^3/uL (3.6-10.2)
[2023-12-04] MEDS: Magnesium Sulfate 2 gm BAG 2 GM/50 ML BAG IVPB ONE (06:48)
[2023-12-04 08:13] LABS: ABS Basophils 0.1 10^3/uL (0.0-0.1); ABS Eosinophils 0.1 10^3/uL (0.0-0.5); ABS Lymphocytes 0.9 10^3/uL (1.0-4.8); ABS Monocytes 0.8 10^3/uL (0.0-1.1); ABS Neutrophils 9.7 10^3/uL (1.5-7.6); Anisocytosis 1+; Eosinophil % 0.6 %; Hypochromasia 2+; Lymphocyte % 8.1 %; Microcytosis 2+
[2023-12-04] MEDS ORDERED: hydrALAZINE 20 mg/ml 1 ML Vial IV IV SLOW PU PRN (15:10)
[2023-12-04] MEDS: Enoxaparin 100 MG/ML SYR SUBCUT ONE (17:17)
[2023-12-05] MEDS: Vancomycin 1,500 MG in NS 0.9% 250 ml 250 ML IVPB SCH ×2 (04:20→05:13)
[2023-12-05 07:38] LABS: Hematocrit 29.7 % (38-53); Hemoglobin 9.7 g/dL (13.2-16.3); Mean Corpuscular Hemoglobin 23.8 pg (27-33); Mean Corpuscular Hgb Conc 32.5 g/dL (31-36); Mean Corpuscular Volume 73.1 fL (80-97); Mean Platelet Volume 6.5 fL (7.5-11.2); Platelet Count 464 10^3/uL (150-450); Red Blood Count 4.06 10^6/uL (4.06-5.63); Red Cell Distribution Width 19.5 % (12-17); White Blood Count 11.4 10^3/uL (3.6-10.2)
[2023-12-05 08:06] LABS: Calcium 9.4 mg/dL (8.6-10.3); Creatinine, Serum 0.95 mg/dL (0.67-1.17); Magnesium 2.1 mg/dL (1.9-2.7); Potassium 4.2 mmol/L (3.5-5.0); eGFR CKD-EPI 80.4 (>60)
[2023-12-05] MEDS: Enoxaparin 100 MG/ML SYR SUBCUT SCH (17:24)
[2023-12-05] MEDS: Vancomycin Random Level NOTE FOLLOW UP ONE (17:25)
[2023-12-05] MEDS: Piperacillin/Tazobac 3.375 BAG 3.375 GM/100 ML BAG IV ONE (17:59)
[2023-12-05] MEDS: D5W 1/2 NS 1000 ml BAG 1,000 ML IV SCH (17:59)
[2023-12-05] MEDS ORDERED: Zosyn per Pharmacy NOTE FOLLOW UP SCH (18:00)
[2023-12-05] MEDS: ZOSYN 3.375 GM Q8H per EXTENDED INFUSION IV SCH (23:18)
[2023-12-05] MEDS: Metoprolol Tartrate 5 mg VIAL 5 ml VIAL (1 mg/ml) IV PRN (23:19)
[2023-12-05] MEDS: Pantoprazole VIAL 40 MG VIAL IV SCH (23:20)
[2023-12-06 06:06] LABS: Calcium 9.4 mg/dL (8.6-10.3); Creatinine, Serum 1.11 mg/dL (0.67-1.17); Phosphorus 2.3 mg/dL (2.5-5.0); Potassium 3.8 mmol/L (3.5-5.0); eGFR CKD-EPI 66.7 (>60)
[2023-12-06 08:18] LABS: ABS Basophils 0.1 10^3/uL (0.0-0.1); ABS Eosinophils 0.1 10^3/uL (0.0-0.5); ABS Monocytes 0.9 10^3/uL (0.0-1.1); ABS Neutrophils 10.1 10^3/uL (1.5-7.6); ABS Nucleated RBC 0.02 10^3/ul; Anisocytosis 1+; Eosinophil % 0.8 %; Hematocrit 30.8 % (38-53); Hemoglobin 9.8 g/dL (13.2-16.3); Hypochromasia 1+; Lymphocyte % 8.5 %; Mean Corpuscular Hemoglobin 23.4 pg (27-33); Mean Corpuscular Hgb Conc 31.8 g/dL (31-36); Mean Corpuscular Volume 73.7 fL (80-97); Mean Platelet Volume 6.4 fL (7.5-11.2); Microcytosis 2+; Nucleated Red Blood Cells % 0.1 %/100WBC (0.0-0.8); Platelet Count 456 10^3/uL (150-450); Red Blood Count 4.18 10^6/uL (4.06-5.63); Red Cell Distribution Width 19.5 % (12-17); White Blood Count 12.2 10^3/uL (3.6-10.2)
[2023-12-06] MEDS: ZOSYN 3.375 GM Q8H per EXTENDED INFUSION IV SCH (08:58)
[2023-12-06] MEDS: D5W 1/2 NS 1000 ml BAG 1,000 ML IV SCH (12:57)
[2023-12-07 08:47] LABS: Hematocrit 30.5 % (38-53); Hemoglobin 9.4 g/dL (13.2-16.3); Mean Corpuscular Hemoglobin 23.2 pg (27-33); Mean Corpuscular Hgb Conc 30.8 g/dL (31-36); Mean Corpuscular Volume 75.4 fL (80-97); Mean Platelet Volume 6.2 fL (7.5-11.2); Platelet Count 402 10^3/uL (150-450); Red Blood Count 4.05 10^6/uL (4.06-5.63); Red Cell Distribution Width 19.8 % (12-17); White Blood Count 7.5 10^3/uL (3.6-10.2)
[2023-12-07 09:05] LABS: % Iron Saturation 24 % (15-55); .Transferrin 109 mg/dL (203-362); Calcium 9.2 mg/dL (8.6-10.3); Creatinine, Serum 1.2 mg/dL (0.67-1.17); Iron 37 ug/dL (50-212); Magnesium 1.9 mg/dL (1.9-2.7); Potassium 3.9 mmol/L (3.5-5.0); Total Iron Binding Capacity 153 mcg/dL (250-450); Unsaturated Iron Binding 116 ug/dL; eGFR CKD-EPI 60.8 (>60)
[2023-12-07 09:26] LABS: ABS Basophils 0.1 10^3/uL (0.0-0.1); ABS Eosinophils 0.1 10^3/uL (0.0-0.5); ABS Lymphocytes 0.8 10^3/uL (1.0-4.8); ABS Monocytes 0.5 10^3/uL (0.0-1.1); ABS Nucleated RBC 0.01 10^3/ul; Acanthocytes 1+; Anisocytosis 1+; Eosinophil % 1.4 %; Lymphocyte % 10.7 %; Nucleated Red Blood Cells % 0.1 %/100WBC (0.0-0.8); Polychromasia 1+
[2023-12-07 14:18] LABS: Ferritin 380.6 ng/mL (24-336)
[2023-12-07] MEDS ORDERED: ceFAZolin 2 GM PREMIX 2 GM/50 ML BAG ONE (14:39)
[2023-12-07] MEDS ORDERED: Propofol 10 MG/ML 20 ML BTL ONE ×2 (14:53→15:30)
[2023-12-07] MEDS ORDERED: Lidocaine 2% PF 5 ML VIAL ONE (14:54)
[2023-12-07] MEDS ORDERED: Acetaminophen IV 1 GM/100ML 1,000 MG/100 ML BAG IV ONE (15:21)
[2023-12-07] MEDS ORDERED: Lidocaine 1% VIAL 10 MG/ML 30 ML VIAL ONE (15:44)
[2023-12-07] MEDS ORDERED: Vancomycin per Pharmacy 1 EA NOTE FOLLOW UP SCH (17:00)
[2023-12-07] MEDS ORDERED: Morphine 2 MG/ML SYRINGE IV PRN (18:03)
[2023-12-07] MEDS: D5W 1/2 NS 1000 ml BAG 1,000 ML IV SCH (19:58)
[2023-12-07] MEDS: Vancomycin 1,500 MG in NS 0.9% 250 ml 250 ML IVPB SCH (22:33)
[2023-12-07] MEDS: Lactated Ringers 1000 ml BAG 1,000 ML IV SCH (22:34)
[2023-12-08] MEDS: Vancomycin 1,500 MG in NS 0.9% 250 ml 250 ML IVPB SCH (00:17)
[2023-12-08] MEDS: hydrALAZINE 20 mg/ml 1 ML Vial IV IV SLOW PU PRN (06:35)
[2023-12-08 06:47] LABS: Hematocrit 31.8 % (38-53); Hemoglobin 9.6 g/dL (13.2-16.3); Mean Corpuscular Hemoglobin 23.5 pg (27-33); Mean Corpuscular Hgb Conc 30.4 g/dL (31-36); Mean Corpuscular Volume 77.4 fL (80-97); Mean Platelet Volume 6.6 fL (7.5-11.2); Platelet Count 408 10^3/uL (150-450); Red Cell Distribution Width 20.7 % (12-17); White Blood Count 13.4 10^3/uL (3.6-10.2)
[2023-12-08 06:58] LABS: Anion Gap 10 mmol/L (2-16); Blood Urea Nitrogen 25 mg/dL (6-24); CO2 Carbon Dioxide 26 mmol/L (22-32); Chloride 110 mmol/L (101-111); Creatinine, Serum 1.28 mg/dL (0.67-1.17); Glucose 121 mg/dL (70-100); Potassium 3.6 mmol/L (3.5-5.0); Sodium 146 mmol/L (135-145); eGFR CKD-EPI 56.2 (>60)
[2023-12-08 06:59] LABS: ALT < 3 U/L (7-52); AST 7 U/L (13-39); Albumin 2.3 g/dL (3.2-5.2); Albumin/Globulin Ratio 0.8 (1-3); Alkaline Phosphatase 78 U/L (35-149); Globulin 2.8 g/dL (2-4); Magnesium 1.7 mg/dL (1.9-2.7); Total Bilirubin 0.4 mg/dL (0.2-1.0); Total Protein 5.1 g/dL (6.4-8.9)
[2023-12-08] MEDS: Magnesium Sulfate 2 gm BAG 2 GM/50 ML BAG IVPB ONE (08:59)
[2023-12-08] MEDS: Enoxaparin 100 MG/ML SYR SUBCUT SCH (09:02)
[2023-12-08] MEDS: Enoxaparin 100 MG/ML SYR SUBCUT ONE (21:38)
[2023-12-09] MEDS: Vancomycin 1,500 MG in NS 0.9% 250 ml 250 ML IVPB SCH (06:02)
[2023-12-09 06:27] LABS: ABS Basophils 0.1 10^3/uL (0.0-0.1); ABS Eosinophils 0.1 10^3/uL (0.0-0.5); ABS Lymphocytes 1.1 10^3/uL (1.0-4.8); ABS Monocytes 1.3 10^3/uL (0.0-1.1); ABS Neutrophils 10.3 10^3/uL (1.5-7.6); Eosinophil % 0.8 %; Hematocrit 25.8 % (38-53); Hemoglobin 8.6 g/dL (13.2-16.3); Lymphocyte % 8.6 %; Mean Corpuscular Hemoglobin 24.1 pg (27-33); Mean Corpuscular Hgb Conc 33.2 g/dL (31-36); Mean Corpuscular Volume 72.6 fL (80-97); Mean Platelet Volume 6.9 fL (7.5-11.2); Platelet Count 340 10^3/uL (150-450); Red Blood Count 3.55 10^6/uL (4.06-5.63); Red Cell Distribution Width 19.7 % (12-17); White Blood Count 12.9 10^3/uL (3.6-10.2)
[2023-12-09 06:54] LABS: C Reactive Protein 126.5 mg/L (<8.01); Calcium 8.9 mg/dL (8.6-10.3); Creatinine, Serum 1.62 mg/dL (0.67-1.17); Magnesium 2.1 mg/dL (1.9-2.7); Phosphorus 2.6 mg/dL (2.5-5.0); Potassium 3.6 mmol/L (3.5-5.0); eGFR CKD-EPI 42.4 (>60)
[2023-12-09] MEDS: Senna TAB 8.6 mg TAB PO PRN (08:19)
[2023-12-09] MEDS: Enoxaparin 100 MG/ML SYR SUBCUT SCH (08:20)
[2023-12-09] MEDS ORDERED: Meropenem 1 GM PREMIX(*) 1 GM/50 ML BAG IV SCH (14:00)
[2023-12-09] MEDS: Meropenem 1 GM PREMIX(*) 1 GM/50 ML BAG IV SCH (16:38)
[2023-12-10 07:20] LABS: Hematocrit 25.2 % (38-53); Hemoglobin 8.4 g/dL (13.2-16.3); Mean Corpuscular Hemoglobin 24.2 pg (27-33); Mean Corpuscular Hgb Conc 33.4 g/dL (31-36); Mean Corpuscular Volume 72.4 fL (80-97); Mean Platelet Volume 6.8 fL (7.5-11.2); Platelet Count 346 10^3/uL (150-450); Red Blood Count 3.48 10^6/uL (4.06-5.63)
[2023-12-10 07:25] LABS: C Reactive Protein 110.58 mg/L (<8.01); Calcium 8.7 mg/dL (8.6-10.3); Creatinine, Serum 1.78 mg/dL (0.67-1.17); Magnesium 2.1 mg/dL (1.9-2.7); Potassium 3.5 mmol/L (3.5-5.0); eGFR CKD-EPI 37.9 (>60)
[2023-12-10 14:25] VITALS: BP 149/63
[2023-12-10] MEDS: Mineral Oil ENEMA 118 ML/BOTTLE BOTTLE PR ONE (15:28)
[2023-12-11] MEDS ORDERED: Vancomycin Trough Check NOTE FOLLOW UP ONE (05:30)
== END 2023-12-10 18:20 | DRG 255 ==
LOC: EDHOLD 20:46 → ED 20:46 → SUATTDRO 11-30 01:20 → SSU 11-30 09:59 → SUATTDRO 11-30 13:23
PROVIDERS: ADMIT Internal Medicine; ATTEND Student in an Organized Health Care Education/Training Program